=== PATIENT | female | born 1935 | race Caucasian/White ===

== ENCOUNTER 2021-07-15 14:30 | Inpatient (IN) ==
[2021-07-15] MEDS ORDERED: BUTT CREAM (COMPOUND) ONE (18:17)
--- NOTE | 2021-07-15 19:48 | PT/OTEVAL ---
PT/OT OBJECTIVES - HISTORY Prescription: PT Consult Diagnosis: Weakness, Falls, R Lower Lobe Pneumonia Precautions: Fall Risk, Decreased Safety Awareness PMH: Hypothyroidism, Insomnia, Asthma, Vertigo, Hx COVID-19 () Prior Level of Function: Independent Other, comment: Pt reports that prior to hospitalization she was residing alone Other: Pt reports that prior to hospitalization she was living alone in her own home and was able to perform mobility tasks without a device. Pt then later made a comment about living with her daughter. It is unclear what pt's exact PLOF is and will need to obtained from family. Pt did report that she has been progressively getting weaker recently and has had several falls. - COGNITION Mental Status: Alert, Oriented, Name, Place, Decreased Safety Awarenes Communication Status: Verbal Ability to Follow Directions: 1 Step Memory Loss: None, Short term memory loss, snf memory loss - PAIN Generalized Pain Scale: Mild (3-4) Comments: Pt reports 4-5/10 generalized pain to entire body & tension to her neck. - BED MOBILITY Rolling: Moderate Scooting: Moderate, x2 - TRANSFERS Supine to Sit: Moderate, x2 (Increased encouragement required for participation.) Sit to Stand: Moderate, x2 (Posterior lean in standing position) Sit or Stand Pivot: Not Tested Sit or Stand Pivot Comment: Pt declined Safety (requires cues for:): Hand Placement Precaution - BALANCE Static Sitting: Fair Standing: Poor Dynamic Sitting: Poor Standing: Total Assist - NEUROMOTOR/SENSATION Dar. Lower Ext Sensation: WFL Coordination: WFL Proprioception: WFL - HAND DOMINANCE Extremity Function: Hand Dominance: Right - ROM Bilateral LE ROM: WFL Muscle Tone: WFL - STRENGTH Bilateral LE Strength Number: 3 Other comment: 3+/5 to RLE and 3/5 to LLE - GAIT Comments: Pt declined to attempt gait tasks stating she's too fatigued. PT/OT ASSESSMENT - PT Problem List: Decreased Bed Mobility, Decreased Transfers, Decreased Gait, Decreased Balance, Decreased Safety, Decreased LE Strength - PT GOALS Short Term Goals Days: 10 Mobility: Pt will perform bed mobility tasks with mod assist x 1 Transfers: Pt will perform functional transfers with mod assist x 1 Gait: Pt will ambulate 25ft with FWW with mod assist x 1 Balance: Pt will increase static standing balance to fair+/good Program Director Goals Days: 20 Mobility: Pt will perform bed mobility tasks with CGA Transfers: Pt will perform functional transfers with CGA Gait: Pt will ambulate 75ft with FWW and CGA Balance: Pt will increase dynamic standing balance to fair- ROM/Strength: Pt will increase BLE strength to 4 to 4+/5 - PATIENT GOALS Patient/Family Goals: "To be able t get around better" Goals Discussed with Patient/Family: Yes (With pt, family not present at time of PT evaluation) Rehabilitation Potential: Good to meet stated goals Justification for Potential: Facilitate highest level of function & safe discharge planning. Weakness and Barriers: Decreased Participation, Cognitive Barrier If yes, explain: Pt requires increased motivation and encouragement for participation - PLAN Suggested Treatment Plan: Bed Mobility Training, Therapeutic Activity, Gait Training, Neuro Re-education, Therapeutic Ex with HEP, Patient Education, Family Education - FREQUENCY AND DURATION PT: 5x per week x 20 days Expected Continuation of Care at Discharge: Home Health, Skilled Care Facility, Determined on Progress (Pt reports that she will discharge to her daughter's house where she will have a 1st floor set up with "some" steps to enter. Reports that her daughter will be present & can assist her if needed.)
[2021-07-15] MEDS: OMNICEF CAP 300 MG PO SCH (20:35)
[2021-07-15] MEDS: MILK OF MAGNESIA PO PRN (20:35)
[2021-07-15] MEDS: COLACE CAP 100 MG PO SCH (20:35)
[2021-07-15] MEDS: XANAX PO PRN (20:35)
[2021-07-16] MEDS ORDERED: TOPROL XL PO ONE (08:12)
[2021-07-16] MEDS: NORVASC TAB 10 MG PO SCH (08:45)
[2021-07-16] MEDS: OMNICEF CAP 300 MG PO SCH ×2 (08:45→21:40)
[2021-07-16] MEDS: TOPROL XL PO SCH (08:45)
--- NOTE | 2021-07-16 09:50 | PT/OTEVAL ---
PT/OT OBJECTIVES - HISTORY Prescription: OT consult Diagnosis: Weakness Precautions: Fall risk PMH: Not noted in documentation Prior Level of Function: Independent Other: Patient reports she was independent in all BADLs and IADLs prior to getting COVID. - COGNITION Mental Status: Alert, Oriented, Name, Date, Purpose Communication Status: Verbal Ability to Follow Directions: 2 Step - PAIN Generalized Pain Scale: Mild (3-4) Comments: Pt reports 4-5/10 generalized pain to entire body & tension to her neck. - TRANSFERS Supine to Sit: Moderate, x2 Sit to Stand: Moderate, x2 Sit or Stand Pivot: Not Tested (Pt refused to perform pivot, stepping, or walking ) - ADL'S Feeding: Independent Toileting: Dependent (reports she uses bedpan; goal is to use BSC at minimum ) - BALANCE Static Sitting: Fair Standing: Poor Dynamic Sitting: Poor Standing: Total Assist - NEUROMOTOR/SENSATION Dar. Lower Ext Sensation: WFL Coordination: WFL Proprioception: WFL - ROM Bilateral UE ROM: WFL Muscle Tone: WFL - STRENGTH Bilateral LE Strength Number: 3 Other comment: 3+/5 to RLE and 3/5 to LLE Bilateral UE Strength Number: 3 Other comment: 3+/5 PT/OT ASSESSMENT - OT Problem List: Decreased Mobility ADL's, Decreased Dressing, Decreased Bathing, Decreased UE Strength, Other Other, comment: Decreased functional activity tolerance - PT GOALS Short Term Goals Days: 10 Mobility: Pt will perform bed mobility tasks with mod assist x 1 Transfers: Pt will perform functional transfers with mod assist x 1 Gait: Pt will ambulate 25ft with FWW with mod assist x 1 Balance: Pt will increase static standing balance to fair+/good Halfway Goals Days: 20 Mobility: Pt will perform bed mobility tasks with CGA Transfers: Pt will perform functional transfers with CGA Gait: Pt will ambulate 75ft with FWW and CGA Balance: Pt will increase dynamic standing balance to fair- ROM/Strength: Pt will increase BLE strength to 4 to 4+/5 - OT GOALS Short Term Goals Days: 10 Mobility for ADL's: Will perform safe functional transfer w/ RW w/ ModA for BADLs. Dressing: Will perform UB and LB dressing w/ ModA and set up. Bathing: Will perform UB and LB bathing w/ ModA. Other: Will demonstrate F.A.T. to >15 min for light BADLs w/ minimal SOB. Halfway Goals Days: 20 Mobility for ADL's: Will perform safe functional transfer w/ RW w/ TouchA for BADLs. Dressing: Will perform UB and LB dressing w/ TouchA and set up. Bathing: Will perform UB and LB bathing w/ TouchA. Upper Ext. Strength/Use: Will improve BUE strength to 4-/5 for BADLs. Other: Will demonstrate F.A.T. to >20 min for light BADLs w/ minimal SOB. - PATIENT GOALS Patient/Family Goals: Family goal: To be able to use BSC and move in with daughter Goals Discussed with Patient/Family: Yes Rehabilitation Potential: Good Justification for Potential: Higher PLOF, good family support Weakness and Barriers: None - PLAN Suggested Treatment Plan: Therapeutic Activity, Self Care Training, Therapeutic Ex with HEP, Patient Education, Family Education - FREQUENCY AND DURATION OT: 5x/wk x hospital stay Expected Continuation of Care at Discharge: Home, Home Health
[2021-07-16] MEDS: COLACE CAP 100 MG PO SCH (21:40)
[2021-07-16] MEDS: XANAX PO PRN (22:44)
[2021-07-17] MEDS ORDERED: TOPROL XL PO ONE (07:36)
[2021-07-17] MEDS: OMNICEF CAP 300 MG PO SCH ×2 (08:39→21:14)
[2021-07-17] MEDS: NORVASC TAB 10 MG PO SCH (08:39)
[2021-07-17] MEDS: TOPROL XL PO SCH (08:39)
[2021-07-17] MEDS: XANAX PO PRN (09:31)
[2021-07-17] MEDS: ROBITUSSIN DM PO PRN (12:48)
[2021-07-17] MEDS: COLACE CAP 100 MG PO SCH (21:14)
[2021-07-17] MEDS: ZyPREXA TAB 5 MG PO SCH (21:14)
[2021-07-18] MEDS: XANAX PO PRN (01:30)
[2021-07-18] MEDS ORDERED: TOPROL XL PO ONE (07:03)
[2021-07-18] MEDS: NORVASC TAB 10 MG PO SCH (08:31)
[2021-07-18] MEDS: OMNICEF CAP 300 MG PO SCH ×2 (08:31→21:42)
[2021-07-18] MEDS: TOPROL XL PO SCH (08:32)
[2021-07-18] MEDS: ZyPREXA TAB 5 MG PO SCH (21:42)
[2021-07-18] MEDS: COLACE CAP 100 MG PO SCH (21:42)
[2021-07-19] MEDS: ROBITUSSIN DM PO PRN (03:08)
[2021-07-19 05:58] LABS: BASOPHILS % (AUTO) 0.9 % (0.2-1.0); EOSINOPHILS # (AUTO) 0.1 x10^3/uL (0.0-0.2); EOSINOPHILS % (AUTO) 2.9 % (0.9-2.9); HEMATOCRIT 28.1 % (36.0-47.0); HEMOGLOBIN 9.8 g/dL (12.0-16.0); LYMPHOCYTES # (AUTO) 0.7 X10^3/uL (1.3-2.9); LYMPHOCYTES % (AUTO) 14.4 % (21.0-51.0); MEAN CORPUSCULAR HEMOGLOBIN 31.8 pg (27.0-34.0); MEAN CORPUSCULAR HGB CONC 34.9 g/dL (33.0-35.0); MEAN CORPUSCULAR VOLUME 91.1 fL (80.0-100.0); MONOCYTES # (AUTO) 0.3 x10^3/uL (0.3-0.8); MONOCYTES % (AUTO) 6.6 % (0.0-13.0); NEUTROPHILS # (AUTO) 3.7 x10^3/uL (2.2-4.8); NEUTROPHILS % (AUTO) 75.2 % (42.0-75.0); RED BLOOD COUNT 3.09 X10^6/uL (3.5-5.4); RED CELL DISTRIBUTION WIDTH 14.5 % (11.6-16.5); WHITE BLOOD COUNT 4.9 X10^3/uL (3.6-10.0)
[2021-07-19 06:10] LABS: ALANINE AMINOTRANSFERASE 30 Units/L (12-78); ALBUMIN 2.9 g/dL (3.4-5.0); ALKALINE PHOSPHATASE 151 Units/L (46-116); ASPARTATE AMINO TRANSFERASE 27 Units/L (15-37); BLOOD UREA NITROGEN 19 mg/dL (7-18); CALCIUM 8.5 mg/dL (8.5-10.1); CHLORIDE 98 mmol/L (98-107); COR CA(FOR HYPOALB) 9.4 mg/dL (8.5-10.1); COR NA(FOR HYPERGLY) 136 mmol/L (136-145); CREATININE 0.83 mg/dL (0.55-1.02); SODIUM 136 mmol/L (136-145); TOTAL PROTEIN 6.9 g/dL (6.4-8.2); eGFR NON BLACK RACES > 60 (>60)
[2021-07-19] MEDS ORDERED: TOPROL XL PO ONE (07:41)
[2021-07-19] MEDS: NORVASC TAB 10 MG PO SCH (08:29)
[2021-07-19] MEDS: OMNICEF CAP 300 MG PO SCH ×2 (08:29→21:41)
[2021-07-19] MEDS: TOPROL XL PO SCH (08:29)
[2021-07-19] MEDS: XANAX PO PRN (12:00)
[2021-07-19] MEDS ORDERED: KLOR-CON PO PRN (14:36)
[2021-07-19] MEDS ORDERED: POTASSIUM CHL 40 MEQ/NS 0.45% 500 ML IV PRN (14:36)
[2021-07-19] MEDS ORDERED: K-RIDER 10 MEQ/NS 100 ML 10 MEQ/100 ML BAG IV PRN (14:36)
[2021-07-19] MEDS ORDERED: POTASSIUM CHL 60 MEQ/NS 0.45% 500 ML IV PRN (14:36)
[2021-07-19] MEDS ORDERED: MAGNESIUM SULFATE 1 GRAM/100 mL PREMIX 1 G/100 ML BAG IV PRN (14:36)
[2021-07-19] MEDS ORDERED: POTASSIUM CHLORIDE LIQ 20 MEQ UDC PO PRN (14:36)
[2021-07-19] MEDS ORDERED: MICRO K EXTEN CAP 10 MEQ PO PRN (14:36)
[2021-07-19 16:09] VITALS: BMI 21.4
[2021-07-19] MEDS: COLACE CAP 100 MG PO SCH (21:40)
[2021-07-19] MEDS: ZyPREXA TAB 5 MG PO SCH (21:41)
[2021-07-20] MEDS ORDERED: TOPROL XL PO ONE (08:01)
[2021-07-20] MEDS: NORVASC TAB 10 MG PO SCH (09:33)
[2021-07-20] MEDS: OMNICEF CAP 300 MG PO SCH ×2 (09:34→21:52)
[2021-07-20] MEDS: TOPROL XL PO SCH (09:34)
[2021-07-20] MEDS: ROBITUSSIN DM PO PRN (12:52)
[2021-07-20] MEDS ORDERED: TYLENOL 325 MG TAB PO PRN (14:55)
[2021-07-20] MEDS ORDERED: TYLENOL 325 MG TAB PO ONE (14:59)
[2021-07-20] MEDS: COLACE CAP 100 MG PO SCH (21:52)
[2021-07-20] MEDS: ZyPREXA TAB 5 MG PO SCH (21:52)
[2021-07-21] MEDS: XANAX PO PRN ×2 (02:03→20:56)
[2021-07-21 06:33] LABS: BASOPHILS % (AUTO) 1.3 % (0.2-1.0); EOSINOPHILS # (AUTO) 0.2 x10^3/uL (0.0-0.2); HEMATOCRIT 26.7 % (36.0-47.0); HEMOGLOBIN 8.7 g/dL (12.0-16.0); LYMPHOCYTES # (AUTO) 0.5 X10^3/uL (1.3-2.9); MEAN CORPUSCULAR HEMOGLOBIN 30.1 pg (27.0-34.0); MEAN CORPUSCULAR HGB CONC 32.6 g/dL (33.0-35.0); MEAN CORPUSCULAR VOLUME 92.4 fL (80.0-100.0); MEAN PLATELET VOLUME 7.1 fL (7.4-11.0); MONOCYTES # (AUTO) 0.2 x10^3/uL (0.3-0.8); NEUTROPHILS # (AUTO) 2.1 x10^3/uL (2.2-4.8); NEUTROPHILS % (AUTO) 68.7 % (42.0-75.0); RED BLOOD COUNT 2.89 X10^6/uL (3.5-5.4); RED CELL DISTRIBUTION WIDTH 14.7 % (11.6-16.5); WHITE BLOOD COUNT 3.1 X10^3/uL (3.6-10.0)
[2021-07-21 06:57] LABS: ALANINE AMINOTRANSFERASE 28 Units/L (12-78); ALBUMIN 2.6 g/dL (3.4-5.0); ALKALINE PHOSPHATASE 143 Units/L (46-116); ASPARTATE AMINO TRANSFERASE 28 Units/L (15-37); BLOOD UREA NITROGEN 22 mg/dL (7-18); CALCIUM 8.6 mg/dL (8.5-10.1); CARBON DIOXIDE 29.2 mmol/L (21-32); CHLORIDE 101 mmol/L (98-107); COR CA(FOR HYPOALB) 9.7 mg/dL (8.5-10.1); CREATININE 0.82 mg/dL (0.55-1.02); SODIUM 137 mmol/L (136-145); TOTAL PROTEIN 6.6 g/dL (6.4-8.2); eGFR NON BLACK RACES > 60 (>60)
[2021-07-21] MEDS ORDERED: TOPROL XL PO ONE (07:24)
[2021-07-21] MEDS: OMNICEF CAP 300 MG PO SCH ×2 (09:30→20:56)
[2021-07-21] MEDS: TOPROL XL PO SCH (09:30)
[2021-07-21] MEDS: NORVASC TAB 10 MG PO SCH (09:30)
[2021-07-21] MEDS: ROBITUSSIN DM PO PRN (13:02)
[2021-07-21] MEDS ORDERED: BUTT CREAM (COMPOUND) ONE (14:21)
[2021-07-21] MEDS ORDERED: BUTT CREAM (COMPOUND) TOP PRN (16:12)
[2021-07-21 19:01] LABS: BILIRUBIN,URINE NEGATIVE (NEGATIVE); BLOOD/HEMOGLOBIN,URINE NEGATIVE (NEGATIVE); GLUCOSE, URINE NEGATIVE (NEGATIVE); KETONES,URINE NEGATIVE (NEGATIVE); LEUKOCYTE ESTERASE ,URINE NEGATIVE (NEGATIVE); NITRITES,URINE NEGATIVE (NEGATIVE); PROTEIN,URINE 1+ (NEGATIVE); UROBILINOGEN,URINE NORMAL (NORMAL)
[2021-07-21 19:11] LABS: APPEARANCE,URINE CLEAR (CLEAR); COLOR,URINE YELLOW (YELLOW); RBC,URINE NONE SEEN /HPF (0-3)
[2021-07-21 19:12] LABS: BACTERIA,URINE NEGATIVE /HPF (NEGATIVE); SQUAMOUS EPITHELIAL CELL,UR RARE /HPF (NEGATIVE)
[2021-07-21] MEDS: COLACE CAP 100 MG PO SCH (20:56)
[2021-07-21] MEDS: ZyPREXA TAB 5 MG PO SCH (20:56)
[2021-07-22] MEDS ORDERED: TOPROL XL PO ONE (07:29)
[2021-07-22] MEDS: TOPROL XL PO SCH (08:39)
[2021-07-22] MEDS: OMNICEF CAP 300 MG PO SCH ×2 (08:39→20:42)
[2021-07-22] MEDS: NORVASC TAB 10 MG PO SCH (08:39)
[2021-07-22] MEDS: COLACE CAP 100 MG PO SCH (20:42)
[2021-07-22] MEDS: XANAX PO PRN (20:42)
[2021-07-22] MEDS: ZyPREXA TAB 5 MG PO SCH (20:42)
--- NOTE | 2021-07-22 23:16 | PCM.PROG ---
Progress Note - Progress Note for Day of Date of Exam: 07/20/21 - Subjective Subjective: Patient is an 85 year old white female who was admitted for swing bed from [facility] as per HPI. Patient working well with PT. No new issues or concerns. - Past Medical Family Social History Past Med/Fam/Surg Hx: No changes since H&P Allergies: Allergies No Known Drug Allergies Allergy (Verified 07/15/21 19:16) - Review of Systems ROS: No change since H&P - Vital Signs and I&O's Vital Signs: Temperature 97.9 F Pulse Rate [Radial] 89 Pulse Rate 92 Respiratory Rate 22 Blood Pressure [Left Arm] 127/61 O2 Sat by Pulse Oximetry 93 Intake and Output: Intake & Output 07/19/21 07/20/21 07/21/21 07/22/21 23:59 23:59 23:59 23:59 Intake Total 660 / 660 1342 / 1342 920 / 920 840 / 840 Output Total 880 / 880 200 / 200 Balance 660 / 660 1342 / 1342 40 / 40 640 / 640 - Physical Exam Oriented: Not Oriented, Other (Patient is alert with clear speech. Patient does get confused easily and frequently. No unilateral weakness.) Eyes: Normal Ear: Normal, Left Throat: Normal Respiratory: Generalized, Rhonchi Cardiovascular: Murmur : Normal Auscultation: Bowel Sounds: Normal Palpation: Normal Tenderness: Normal Skin: Normal Musculoskeletal: Back:Thoracic, Back:Lumbar, Tender (generalized global weakness), Instability Psychiatric: Normal Mood Description: Calm Affect: Normal Speech Pattern: Clear, Appropriate - Laboratory and Diagnostics Result Diagrams: 07/21/21 05:31 07/21/21 05:31 Labs: Laboratory WBC 3.1 X10^3/uL (3.6-10.0) L 07/21/21 05:31 RBC 2.89 X10^6/uL (3.5-5.4) L 07/21/21 05:31 Hgb 8.7 g/dL (12.0-16.0) L 07/21/21 05:31 Hct 26.7 % (36.0-47.0) L 07/21/21 05:31 MCV 92.4 fL (80.0-100.0) 07/21/21 05:31 MCH 30.1 pg (27.0-34.0) 03/30/22 05:31 MCHC 32.6 g/dL (33.0-35.0) L 07/21/21 05:31 RDW 14.7 % (11.6-16.5) 07/21/21 05:31 Plt Count 348 X10^3/uL (150.0-450.0) 07/21/21 05:31 MPV 7.1 fL (7.4-11.0) L 07/21/21 05:31 Neut % (Auto) 68.7 % (42.0-75.0) 07/21/21 05:31 Lymph % (Auto) 17.0 % (21.0-51.0) L 07/21/21 05:31 [place] % (Auto) 8.0 % (0.0-13.0) 07/21/21 05:31 Eos % (Auto) 5.0 % (0.9-2.9) H 07/21/21 05:31 Baso % (Auto) 1.3 % (0.2-1.0) H 07/21/21 05:31 Neut # (Auto) 2.1 x10^3/uL (2.2-4.8) L 07/21/21 05:31 Lymph # (Auto) 0.5 X10^3/uL (1.3-2.9) L 07/21/21 05:31 [place] # (Auto) 0.2 x10^3/uL (0.3-0.8) L 07/21/21 05:31 Eos # (Auto) 0.2 x10^3/uL (0.0-0.2) 07/21/21 05:31 Baso # (Auto) 0.0 X10^3/uL (0.0-0.1) 07/21/21 05:31 Absolute Nucleated RBC 0.0 /100WBC 07/21/21 05:31 Sodium 137 mmol/L (136-145) 07/21/21 05:31 Corrected Sodium TNP 07/21/21 05:31 Potassium 3.3 mmol/L (3.5-5.1) L 07/21/21 05:31 Chloride 101 mmol/L (98-107) 07/21/21 05:31 Carbon Dioxide 29.2 mmol/L (21-32) 07/21/21 05:31 BUN 22 mg/dL (7-18) H 07/21/21 05:31 Creatinine 0.82 mg/dL (0.55-1.02) 07/21/21 05:31 Est GFR (MDRD) Af Amer > 60 (>60) 07/21/21 05:31 Est GFR (MDRD) Non-Af > 60 (>60) 07/21/21 05:31 Glucose 108 mg/dL (65-99) H 07/21/21 05:31 POC Glucose (mg/dL) 112 mg/dL (65-99) H 07/21/21 20:29 Calcium 8.6 mg/dL (8.5-10.1) 07/21/21 05:31 Corrected Calcium 9.7 mg/dL (8.5-10.1) 07/21/21 05:31 Magnesium 2.1 mg/dL (1.7-2.9) 07/19/21 14:52 Total Bilirubin 0.30 mg/dL (0.2-1.0) 07/21/21 05:31 AST 28 Units/L (15-37) 07/21/21 05:31 ALT 28 Units/L (12-78) 07/21/21 05:31 Alkaline Phosphatase 143 Units/L (46-116) H 07/21/21 05:31 Total Protein 6.6 g/dL (6.4-8.2) 07/21/21 05:31 Albumin 2.6 g/dL (3.4-5.0) L 07/21/21 05:31 Globulin 4.0 g/dL (2.5-4.5) 07/21/21 05:31 Albumin/Globulin Ratio 0.7 Ratio (1.1-2.1) L 07/21/21 05:31 Specimen Type Catherized urine 07/21/21 18:29 Urine Color Yellow (YELLOW) 07/21/21 18: Urine Appearance Clear (CLEAR) 07/21/21 18: Urine pH 7.0 (5.0 - 8.0) 07/21/21 18:29 Ur Specific [place] 1.015 (1.000-1.030) 07/21/21 18:29 Urine Protein 1+ (NEGATIVE) 07/21/21 18:29 Urine Glucose (UA) Negative (NEGATIVE) 07/21/21 18:29 Urine Ketones Negative (NEGATIVE) 07/21/21 18:29 Urine Blood Negative (NEGATIVE) 07/21/21 18:29 Urine Nitrite Negative (NEGATIVE) 07/21/21 18:29 Urine Bilirubin Negative (NEGATIVE) 07/21/21 18:29 Urine Urobilinogen Normal (NORMAL) 07/21/21 18:29 Ur Leukocyte Esterase Negative (NEGATIVE) 07/21/21 18:29 Urine RBC None seen /HPF (0-3) 07/21/21 18:29 Urine WBC None seen /HPF (0-5) 07/21/21 18:29 Ur Squamous Epith Cells Rare /HPF (NEGATIVE) 07/21/21 18:29 Urine Bacteria Negative /HPF (NEGATIVE) 07/21/21 18:29 Ur Culture Indicated? No/not indicated 07/21/21 18:29 - Plan (1) Pneumonia Status: Acute Plan: PO cefdinir. Physical therapy. Labs as ordered. Continue home meds (2) Generalized weakness Status: Acute (3) Diabetes mellitus Status: Chronic Plan: Home meds (4) Hypertension Status: Chronic Plan: Home meds
[2021-07-22] MEDS ORDERED: MILK OF MAGNESIA PO SCH (23:45)
[2021-07-23] MEDS ORDERED: TOPROL XL PO ONE (07:12)
[2021-07-23 08:02] LABS: EOSINOPHILS # (AUTO) 0.2 x10^3/uL (0.0-0.2); EOSINOPHILS % (AUTO) 5.3 % (0.9-2.9); HEMATOCRIT 26.1 % (36.0-47.0); HEMOGLOBIN 9.1 g/dL (12.0-16.0); LYMPHOCYTES # (AUTO) 0.7 X10^3/uL (1.3-2.9); LYMPHOCYTES % (AUTO) 19.7 % (21.0-51.0); MEAN CORPUSCULAR HEMOGLOBIN 31.7 pg (27.0-34.0); MEAN CORPUSCULAR HGB CONC 34.9 g/dL (33.0-35.0); MEAN CORPUSCULAR VOLUME 90.7 fL (80.0-100.0); MEAN PLATELET VOLUME 6.8 fL (7.4-11.0); MONOCYTES # (AUTO) 0.3 x10^3/uL (0.3-0.8); MONOCYTES % (AUTO) 9.1 % (0.0-13.0); NEUTROPHILS # (AUTO) 2.2 x10^3/uL (2.2-4.8); NEUTROPHILS % (AUTO) 64.9 % (42.0-75.0); RED BLOOD COUNT 2.88 X10^6/uL (3.5-5.4); RED CELL DISTRIBUTION WIDTH 14.5 % (11.6-16.5); WHITE BLOOD COUNT 3.4 X10^3/uL (3.6-10.0)
[2021-07-23 08:11] LABS: ALANINE AMINOTRANSFERASE 28 Units/L (12-78); ALBUMIN 2.7 g/dL (3.4-5.0); ALKALINE PHOSPHATASE 149 Units/L (46-116); ASPARTATE AMINO TRANSFERASE 26 Units/L (15-37); BLOOD UREA NITROGEN 13 mg/dL (7-18); CALCIUM 8.7 mg/dL (8.5-10.1); CARBON DIOXIDE 29.8 mmol/L (21-32); CHLORIDE 102 mmol/L (98-107); COR CA(FOR HYPOALB) 9.7 mg/dL (8.5-10.1); COR NA(FOR HYPERGLY) 141 mmol/L (136-145); CREATININE 0.79 mg/dL (0.55-1.02); MAGNESIUM 1.7 mg/dL (1.7-2.9); SODIUM 141 mmol/L (136-145); TOTAL PROTEIN 6.8 g/dL (6.4-8.2); eGFR NON BLACK RACES > 60 (>60)
[2021-07-23] MEDS: SYNTHROID 150 mcg TAB PO SCH (08:39)
[2021-07-23] MEDS: OMNICEF CAP 300 MG PO SCH ×2 (08:39→22:52)
[2021-07-23] MEDS: XANAX PO SCH ×2 (08:39→22:52)
[2021-07-23] MEDS ORDERED: OMNICEF CAP 300 MG PO SCH (09:00)
[2021-07-23] MEDS ORDERED: TOPROL XL PO SCH (09:00)
[2021-07-23] MEDS ORDERED: COLACE CAP 100 MG PO SCH (09:00)
[2021-07-23] MEDS ORDERED: PATIENT'S HOME MEDICATION (Alprazolam [Xanax] 0.5 mg Tablet) PO SCH (09:00)
[2021-07-23] MEDS ORDERED: NORVASC TAB 10 MG PO SCH (09:00)
[2021-07-23] MEDS: TOPROL XL PO SCH (12:48)
[2021-07-23] MEDS: NORVASC TAB 10 MG PO SCH (12:48)
[2021-07-23] MEDS: ROBITUSSIN DM PO PRN (12:56)
[2021-07-23] MEDS: K-DUR TAB 20 MEQ PO PRN (18:37)
[2021-07-23] MEDS: ZyPREXA TAB 5 MG PO SCH (22:52)
[2021-07-23] MEDS: COLACE CAP 100 MG PO SCH (22:52)
[2021-07-24] MEDS ORDERED: TOPROL XL PO ONE (07:52)
[2021-07-24 08:47] LABS: MAGNESIUM 1.8 mg/dL (1.7-2.9)
[2021-07-24] MEDS: K-DUR TAB 20 MEQ PO PRN (09:02)
[2021-07-24] MEDS: OMNICEF CAP 300 MG PO SCH ×2 (09:03→22:00)
[2021-07-24] MEDS: SYNTHROID 150 mcg TAB PO SCH (09:03)
[2021-07-24] MEDS: XANAX PO SCH ×2 (09:03→22:00)
--- NOTE | 2021-07-24 10:19 | PCM.PROG ---
Progress Note Progress Note for Day of Date of Exam: 07/24/21 Subjective Subjective: Patient is an 85 year old female who was admitted for swing bed from [facility]. She is doing well with no complaints. Patient working well with PT. Patient lost her IV access and unable to obtain another one. She was getting IV magnesium. Labs reviewed - Mg 1.8 K:3.6 Plan: continue current treatment, PT/OT as tolerated. Fall precautions. Continue Cefdinir for pneumonia. Will add PO Mag. Monitor labs as needed. Past Medical Family Social History Past Med/Fam/Surg Hx: No changes since H&P Allergies: Allergies No Known Drug Allergies Allergy (Verified 07/15/21 19:16) Review of Systems ROS: No change since H&P Vital Signs and I&O's Vital Signs: Temperature 99.1 F Pulse Rate [Radial] 71 Pulse Rate 92 Respiratory Rate 20 Blood Pressure [Left Arm] 110/58 O2 Sat by Pulse Oximetry 98 Intake and Output: Intake & Output 07/21/21 07/22/21 07/23/21 07/24/21 23:59 23:59 23:59 23:59 Intake Total 920 / 920 1140 / 1140 930 / 930 150 / 150 Output Total 880 / 880 200 / 200 Balance 40 / 40 940 / 940 930 / 930 150 / 150 Physical Exam Oriented: Not Oriented Eyes: Normal Ear: Normal Throat: Normal Respiratory: Generalized Cardiovascular: Normal and Murmur Auscultation: Bowel Sounds: Normal Tenderness: Normal Skin: Decreased Turgur Musculoskeletal: Back:Thoracic, Back:Lumbar, Tender (generalized global weakness) and Instability Psychiatric: Normal Mood Description: Calm Affect: Normal Speech Pattern: Clear and Appropriate Laboratory and Diagnostics Result Diagrams: 07/23/21 07:43 07/24/21 08:34 Labs: Laboratory WBC 3.4 X10^3/uL (3.6-10.0) L 07/23/21 07:43 RBC 2.88 X10^6/uL (3.5-5.4) L 07/23/21 07:43 Hgb 9.1 g/dL (12.0-16.0) L 07/23/21 07:43 Hct 26.1 % (36.0-47.0) L 07/23/21 07:43 MCV 90.7 fL (80.0-100.0) 07/23/21 07:43 MCH 31.7 pg (27.0-34.0) 07/23/21 07:43 MCHC 34.9 g/dL (33.0-35.0) 07/23/21 07:43 RDW 14.5 % (11.6-16.5) 07/23/21 07:43 Plt Count 352 X10^3/uL (150.0-450.0) 07/23/21 07:43 MPV 6.8 fL (7.4-11.0) L 07/23/21 07:43 Neut % (Auto) 64.9 % (42.0-75.0) 07/23/21 07:43 Lymph % (Auto) 19.7 % (21.0-51.0) L 07/23/21 07:43 [place] % (Auto) 9.1 % (0.0-13.0) 07/23/21 07:43 Eos % (Auto) 5.3 % (0.9-2.9) H 07/23/21 07:43 Baso % (Auto) 1.0 % (0.2-1.0) 07/23/21 07:43 Neut # (Auto) 2.2 x10^3/uL (2.2-4.8) 07/23/21 07:43 Lymph # (Auto) 0.7 X10^3/uL (1.3-2.9) L 07/23/21 07:43 [place] # (Auto) 0.3 x10^3/uL (0.3-0.8) 07/23/21 07:43 Eos # (Auto) 0.2 x10^3/uL (0.0-0.2) 07/23/21 07:43 Baso # (Auto) 0.0 X10^3/uL (0.0-0.1) 07/23/21 07:43 Absolute Nucleated RBC 0.0 /100WBC 07/23/21 07:43 Sodium 141 mmol/L (136-145) 07/23/21 07:43 Corrected Sodium 141 mmol/L (136-145) 07/23/21 07:43 Potassium 3.6 mmol/L (3.5-5.1) 07/24/21 08:34 Chloride 102 mmol/L (98-107) 07/23/21 07:43 Carbon Dioxide 29.8 mmol/L (21-32) 07/23/21 07:43 BUN 13 mg/dL (7-18) 07/23/21 07:43 Creatinine 0.79 mg/dL (0.55-1.02) 07/23/21 07:43 Est GFR (MDRD) Af Amer > 60 (>60) 07/23/21 07:43 Est GFR (MDRD) Non-Af > 60 (>60) 07/23/21 07:43 Glucose 115 mg/dL (65-99) H 07/23/21 07:43 POC Glucose (mg/dL) 112 mg/dL (65-99) H 07/21/21 20:29 Calcium 8.7 mg/dL (8.5-10.1) 07/23/21 07:43 Corrected Calcium 9.7 mg/dL (8.5-10.1) 07/23/21 07:43 Magnesium 1.8 mg/dL (1.7-2.9) 07/24/21 08:34 Total Bilirubin 0.20 mg/dL (0.2-1.0) 07/23/21 07:43 AST 26 Units/L (15-37) 07/23/21 07:43 ALT 28 Units/L (12-78) 07/23/21 07:43 Alkaline Phosphatase 149 Units/L (46-116) H 07/23/21 07:43 Total Protein 6.8 g/dL (6.4-8.2) 07/23/21 07:43 Albumin 2.7 g/dL (3.4-5.0) L 07/23/21 07:43 Globulin 4.1 g/dL (2.5-4.5) 07/23/21 07:43 Albumin/Globulin Ratio 0.7 Ratio (1.1-2.1) L 07/23/21 07:43 Specimen Type Catherized urine 07/21/21 18:29 Urine Color Yellow (YELLOW) 07/21/21 18:29 Urine Appearance Clear (CLEAR) 07/21/21 18:29 Urine pH 7.0 (5.0 - 8.0) 07/21/21 18:29 Ur Specific [place] 1.015 (1.000-1.030) 07/21/21 18:29 Urine Protein 1+ (NEGATIVE) 07/21/21 18:29 Urine Glucose (UA) Negative (NEGATIVE) 07/21/21 18:29 Urine Ketones Negative (NEGATIVE) 07/21/21 18:29 Urine Blood Negative (NEGATIVE) 07/21/21 18:29 Urine Nitrite Negative (NEGATIVE) 07/21/21 18:29 Urine Bilirubin Negative (NEGATIVE) 07/21/21 18:29 Urine Urobilinogen Normal (NORMAL) 07/21/21 18:29 Ur Leukocyte Esterase Negative (NEGATIVE) 07/21/21 18:29 Urine RBC None seen /HPF (0-3) 07/21/21 18:29 Urine WBC None seen /HPF (0-5) 07/21/21 18:29 Ur Squamous Epith Cells Rare /HPF (NEGATIVE) 07/21/21 18:29 Urine Bacteria Negative /HPF (NEGATIVE) 07/21/21 18:29 Ur Culture Indicated? No/not indicated 07/21/21 18:29 Plan (1) Pneumonia: Status: Acute Qualifiers: Aspiration pneumonia type: unspecified Laterality: unspecified later ality Lung location: unspecified part of lung Pneumonia type: aspiration pneumonia Qualified Code(s): J69.0 - Pneumonitis due to inhalation of food and vomit Plan: PO cefdinir Physical therapy Continue home meds (2) Generalized weakness: Status: Acute (3) Diabetes mellitus: Status: Chronic Qualifiers: Diabetes mellitus complication status: with other specified complication Diabetes mellitus exterminator insulin use: unspecified exterminator insulin use status Diabetes mellitus type: type 2 Qualified Code(s): E11.69 - Type 2 d iabetes mellitus with other specified complication Plan: Home meds (4) Hypertension: Status: Chronic Qualifiers: Hypertension type: primary hypertension Qualified Code(s): I10 - Essential (primary) hypertension Plan: Home meds
[2021-07-24] MEDS: NORVASC TAB 10 MG PO SCH (12:18)
[2021-07-24] MEDS: TOPROL XL PO SCH (12:18)
[2021-07-24] MEDS: MAG-OX TAB PO SCH (12:19)
[2021-07-24] MEDS: ZyPREXA TAB 5 MG PO SCH (22:00)
[2021-07-24] MEDS: COLACE CAP 100 MG PO SCH (22:00)
[2021-07-25 05:26] LABS: MAGNESIUM 1.9 mg/dL (1.7-2.9)
[2021-07-25] MEDS: MAG-OX TAB PO SCH (05:59)
[2021-07-25] MEDS ORDERED: TOPROL XL PO ONE (10:02)
[2021-07-25] MEDS: NORVASC TAB 10 MG PO SCH (10:07)
[2021-07-25] MEDS: OMNICEF CAP 300 MG PO SCH (10:08)
[2021-07-25] MEDS: XANAX PO SCH ×2 (10:08→20:57)
[2021-07-25] MEDS: TOPROL XL PO SCH (10:08)
[2021-07-25] MEDS: SYNTHROID 150 mcg TAB PO SCH (10:09)
[2021-07-25] MEDS: ZyPREXA TAB 5 MG PO SCH (20:57)
[2021-07-25] MEDS: COLACE CAP 100 MG PO SCH (20:57)
[2021-07-26 05:47] LABS: EOSINOPHILS # (AUTO) 0.2 x10^3/uL (0.0-0.2); EOSINOPHILS % (AUTO) 5.8 % (0.9-2.9); HEMATOCRIT 28.2 % (36.0-47.0); HEMOGLOBIN 9.6 g/dL (12.0-16.0); LYMPHOCYTES # (AUTO) 0.8 X10^3/uL (1.3-2.9); LYMPHOCYTES % (AUTO) 24.1 % (21.0-51.0); MEAN CORPUSCULAR HEMOGLOBIN 31.3 pg (27.0-34.0); MEAN CORPUSCULAR HGB CONC 34.2 g/dL (33.0-35.0); MEAN CORPUSCULAR VOLUME 91.3 fL (80.0-100.0); MONOCYTES # (AUTO) 0.2 x10^3/uL (0.3-0.8); MONOCYTES % (AUTO) 6.4 % (0.0-13.0); NEUTROPHILS # (AUTO) 2.1 x10^3/uL (2.2-4.8); NEUTROPHILS % (AUTO) 62.7 % (42.0-75.0); RED BLOOD COUNT 3.09 X10^6/uL (3.5-5.4); RED CELL DISTRIBUTION WIDTH 14.4 % (11.6-16.5); WHITE BLOOD COUNT 3.4 X10^3/uL (3.6-10.0)
[2021-07-26] MEDS: MAG-OX TAB PO SCH (06:00)
[2021-07-26 06:04] LABS: ALANINE AMINOTRANSFERASE 23 Units/L (12-78); ALBUMIN 2.6 g/dL (3.4-5.0); ALKALINE PHOSPHATASE 150 Units/L (46-116); ASPARTATE AMINO TRANSFERASE 19 Units/L (15-37); BLOOD UREA NITROGEN 11 mg/dL (7-18); CALCIUM 8.5 mg/dL (8.5-10.1); CARBON DIOXIDE 27.2 mmol/L (21-32); CHLORIDE 106 mmol/L (98-107); COR CA(FOR HYPOALB) 9.6 mg/dL (8.5-10.1); COR NA(FOR HYPERGLY) 142 mmol/L (136-145); CREATININE 0.74 mg/dL (0.55-1.02); MAGNESIUM 1.9 mg/dL (1.7-2.9); SODIUM 141 mmol/L (136-145); TOTAL PROTEIN 6.6 g/dL (6.4-8.2); eGFR NON BLACK RACES > 60 (>60)
[2021-07-26] MEDS ORDERED: TOPROL XL PO ONE (08:18)
[2021-07-26] MEDS: SYNTHROID 150 mcg TAB PO SCH (09:00)
[2021-07-26] MEDS: XANAX PO SCH ×2 (09:00→20:28)
[2021-07-26] MEDS: TOPROL XL PO SCH (09:00)
[2021-07-26] MEDS: NORVASC TAB 10 MG PO SCH (09:00)
[2021-07-26] MEDS: K-DUR TAB 20 MEQ PO PRN (10:18)
--- NOTE | 2021-07-26 17:52 | PCM.PROG ---
Progress Note - Progress Note for Day of Date of Exam: 07/26/21 - Subjective Subjective: The patient is a swing-bed patient of Dr. Nath. The patient is an 85-year-old white female who was admitted with generalized weakness. She is currently receiving some physical therapy and very gentle hydration at this time. She had some hypokalemia. Her potassium was 3.4 today and we do have her on some potassium replacement. She previously had a lower magnesium level so we ordered a repeat magnesium level as well. Pt is on po cefinir for pneumonia. She denies chest pain or sob but had increase central rhonchi on exam so we will repeat CXR today. She has been afebrile. She was not on nasal cannula this morning but she has been on nasal cannula at 2 liters. - Past Medical Family Social History Past Med/Fam/Surg Hx: No changes since H&P Allergies: Allergies No Known Drug Allergies Allergy (Verified 07/15/21 19:16) - Review of Systems ROS: No change since H&P - Vital Signs and I&O's Vital Signs: Temperature 98.3 F Pulse Rate [Radial] 73 Pulse Rate 92 Respiratory Rate 18 Blood Pressure [Left Arm] 127/60 O2 Sat by Pulse Oximetry 96 Intake and Output: Intake & Output 07/24/21 07/25/21 07/26/21 07/27/21 11:59 11:59 11:59 11:59 Intake Total 930 / 930 1080 / 1080 815 / 815 360 / 360 Balance 930 / 930 1080 / 1080 815 / 815 360 / 360 - Physical Exam Oriented: Not Oriented Eyes: Normal Ear: Normal Throat: Normal Respiratory: Generalized Cardiovascular: Murmur, Normal : Normal Auscultation: Bowel Sounds: Normal Tenderness: Normal Skin: Decreased Turgur Musculoskeletal: Back:Thoracic, Back:Lumbar, Tender (generalized global weakness), Instability Psychiatric: Normal Mood Description: Calm Affect: Normal Speech Pattern: Clear, Appropriate - Laboratory and Diagnostics Result Diagrams: 07/26/21 05:30 07/26/21 05:30 Labs: Laboratory WBC 3.4 X10^3/uL (3.6-10.0) L 07/26/21 05:30 RBC 3.09 X10^6/uL (3.5-5.4) L 07/26/21 05:30 Hgb 9.6 g/dL (12.0-16.0) L 07/26/21 05:30 Hct 28.2 % (36.0-47.0) L 07/26/21 05:30 MCV 91.3 fL (80.0-100.0) 07/26/21 05:30 MCH 31.3 pg (27.0-34.0) 07/26/21 05:30 MCHC 34.2 g/dL (33.0-35.0) 07/26/21 05:30 RDW 14.4 % (11.6-16.5) 07/26/21 05:30 Plt Count 354 X10^3/uL (150.0-450.0) 07/26/21 05:30 MPV 7.0 fL (7.4-11.0) L 07/26/21 05:30 Neut % (Auto) 62.7 % (42.0-75.0) 07/26/21 05:30 Lymph % (Auto) 24.1 % (21.0-51.0) 07/26/21 05:30 [place] % (Auto) 6.4 % (0.0-13.0) 07/26/21 05:30 Eos % (Auto) 5.8 % (0.9-2.9) H 07/26/21 05:30 Baso % (Auto) 1.0 % (0.2-1.0) 07/26/21 05:30 Neut # (Auto) 2.1 x10^3/uL (2.2-4.8) L 07/26/21 05:30 Lymph # (Auto) 0.8 X10^3/uL (1.3-2.9) L 07/26/21 05:30 [place] # (Auto) 0.2 x10^3/uL (0.3-0.8) L 07/26/21 05:30 Eos # (Auto) 0.2 x10^3/uL (0.0-0.2) 07/26/21 05:30 Baso # (Auto) 0.0 X10^3/uL (0.0-0.1) 07/26/21 05:30 Absolute Nucleated RBC 0.0 /100WBC 07/26/21 05:30 Sodium 141 mmol/L (136-145) 07/26/21 05:30 Corrected Sodium 142 mmol/L (136-145) 07/26/21 05:30 Potassium 3.4 mmol/L (3.5-5.1) L 07/26/21 05:30 Chloride 106 mmol/L (98-107) 07/26/21 05:30 Carbon Dioxide 27.2 mmol/L (21-32) 07/26/21 05:30 BUN 11 mg/dL (7-18) 07/26/21 05:30 Creatinine 0.74 mg/dL (0.55-1.02) 07/26/21 05:30 Est GFR (MDRD) Af Amer > 60 (>60) 07/26/21 05:30 Est GFR (MDRD) Non-Af > 60 (>60) 07/26/21 05:30 Glucose 124 mg/dL (65-99) H 07/26/21 05:30 POC Glucose (mg/dL) 112 mg/dL (65-99) H 07/21/21 20:29 Calcium 8.5 mg/dL (8.5-10.1) 07/26/21 05:30 Corrected Calcium 9.6 mg/dL (8.5-10.1) 07/26/21 05:30 Magnesium 1.9 mg/dL (1.7-2.9) 07/26/21 05:30 Total Bilirubin 0.20 mg/dL (0.2-1.0) 07/26/21 05:30 AST 19 Units/L (15-37) 07/26/21 05:30 ALT 23 Units/L (12-78) 07/26/21 05:30 Alkaline Phosphatase 150 Units/L (46-116) H 07/26/21 05:30 Total Protein 6.6 g/dL (6.4-8.2) 07/26/21 05:30 Albumin 2.6 g/dL (3.4-5.0) L 07/26/21 05:30 Globulin 4.0 g/dL (2.5-4.5) 07/26/21 05:30 Albumin/Globulin Ratio 0.7 Ratio (1.1-2.1) L 07/26/21 05:30 Specimen Type Catherized urine 07/21/21 18:29 Urine Color Yellow (YELLOW) 07/21/21 18:29 Urine Appearance Clear (CLEAR) 07/21/21 18: Urine pH 7.0 (5.0 - 8.0) 07/21/21 18: Ur Specific [place] 1.015 (1.000-1.030) 07/21/21 18:29 Urine Protein 1+ (NEGATIVE) 07/21/21 18: Urine Glucose (UA) Negative (NEGATIVE) 07/21/21 18: Urine Ketones Negative (NEGATIVE) 07/21/21 18: Urine Blood Negative (NEGATIVE) 07/21/21 18: Urine Nitrite Negative (NEGATIVE) 07/21/21 18: Urine Bilirubin Negative (NEGATIVE) 07/21/21 18: Urine Urobilinogen Normal (NORMAL) 07/21/21 18:29 Ur Leukocyte Esterase Negative (NEGATIVE) 07/21/21 18:29 Urine RBC None seen /HPF (0-3) 07/21/21 18:29 Urine WBC None seen /HPF (0-5) 07/21/21 18:29 Ur Squamous Epith Cells Rare /HPF (NEGATIVE) 07/21/21 18:29 Urine Bacteria Negative /HPF (NEGATIVE) 07/21/21 18:29 Ur Culture Indicated? No/not indicated 07/21/21 18:29
--- NOTE | 2021-07-26 20:16 | RAD ---
HISTORYHX PNEUMONIA, CHEST CONGESTION Relevant Clinical InformationSTUDYCHEST, 1 VIEWCOMPARISONNone.FINDINGSThe trachea is midline. The cardiac silhouette is enlarged without overt signs of failure. Chronic emphysematous and interstitial lung changes. Patchy bilateral airspace disease. No significant pleural effusion or pneumothorax. 10 mm right upper lobe pulmonary nodule.The bony thorax is unremarkable.IMPRESSIONOne. Patchy bilateral airspace disease which may represent multifocal pneumonia. Recommend clinical/laboratory correlation and following to resolution.Two. 10 mm right upper lobe pulmonary nodule. Recommend dedicated CT of the chest with contrast on outpatient basis for further characterization.Electronically signed by: SYLVIA HERRERA (Jul 26, 2021 20:16:20)
[2021-07-26] MEDS: COLACE CAP 100 MG PO SCH (20:28)
[2021-07-26] MEDS: ZyPREXA TAB 5 MG PO SCH (20:28)
[2021-07-26] MEDS: MILK OF MAGNESIA PO PRN (20:29)
[2021-07-27] MEDS ORDERED: VISTARIL PO PRN (01:44)
[2021-07-27] MEDS: ROBITUSSIN DM PO PRN (02:53)
[2021-07-27] MEDS: MAG-OX TAB PO SCH (05:59)
[2021-07-27] MEDS ORDERED: TOPROL XL PO ONE (08:15)
[2021-07-27] MEDS: NORVASC TAB 10 MG PO SCH (08:16)
[2021-07-27] MEDS: SYNTHROID 150 mcg TAB PO SCH (08:16)
[2021-07-27] MEDS: XANAX PO SCH ×2 (08:16→21:35)
[2021-07-27] MEDS: TOPROL XL PO SCH (08:16)
[2021-07-27] MEDS: ROBITUSSIN DM PO SCH ×4 (09:35→21:35)
[2021-07-27] MEDS: COLACE CAP 100 MG PO SCH (21:35)
[2021-07-28 04:36] LABS: BASOPHILS % (AUTO) 0.4 % (0.2-1.0); EOSINOPHILS # (AUTO) 0.2 x10^3/uL (0.0-0.2); EOSINOPHILS % (AUTO) 3.7 % (0.9-2.9); HEMATOCRIT 24.1 % (36.0-47.0); HEMOGLOBIN 8.3 g/dL (12.0-16.0); LYMPHOCYTES # (AUTO) 0.9 X10^3/uL (1.3-2.9); LYMPHOCYTES % (AUTO) 16.2 % (21.0-51.0); MEAN CORPUSCULAR HEMOGLOBIN 31.3 pg (27.0-34.0); MEAN CORPUSCULAR HGB CONC 34.3 g/dL (33.0-35.0); MEAN CORPUSCULAR VOLUME 91.1 fL (80.0-100.0); MEAN PLATELET VOLUME 7.2 fL (7.4-11.0); MONOCYTES # (AUTO) 0.3 x10^3/uL (0.3-0.8); MONOCYTES % (AUTO) 5.1 % (0.0-13.0); NEUTROPHILS # (AUTO) 4.2 x10^3/uL (2.2-4.8); NEUTROPHILS % (AUTO) 74.6 % (42.0-75.0); RED BLOOD COUNT 2.65 X10^6/uL (3.5-5.4); RED CELL DISTRIBUTION WIDTH 14.6 % (11.6-16.5); WHITE BLOOD COUNT 5.7 X10^3/uL (3.6-10.0)
[2021-07-28 04:53] LABS: ALANINE AMINOTRANSFERASE 19 Units/L (12-78); ALBUMIN 2.3 g/dL (3.4-5.0); ALKALINE PHOSPHATASE 127 Units/L (46-116); ASPARTATE AMINO TRANSFERASE 17 Units/L (15-37); BLOOD UREA NITROGEN 25 mg/dL (7-18); CALCIUM 8.3 mg/dL (8.5-10.1); CARBON DIOXIDE 30.8 mmol/L (21-32); CHLORIDE 104 mmol/L (98-107); COR CA(FOR HYPOALB) 9.7 mg/dL (8.5-10.1); CREATININE 0.81 mg/dL (0.55-1.02); SODIUM 138 mmol/L (136-145); TOTAL PROTEIN 5.9 g/dL (6.4-8.2); eGFR NON BLACK RACES > 60 (>60)
[2021-07-28] MEDS: MAG-OX TAB PO SCH (06:11)
[2021-07-28] MEDS ORDERED: TOPROL XL PO ONE (07:09)
[2021-07-28] MEDS: TOPROL XL PO SCH (08:19)
[2021-07-28] MEDS: NORVASC TAB 10 MG PO SCH (08:19)
[2021-07-28] MEDS: SYNTHROID 150 mcg TAB PO SCH (08:19)
[2021-07-28] MEDS: XANAX PO SCH ×2 (08:19→20:37)
[2021-07-28] MEDS: ROBITUSSIN DM PO SCH ×4 (08:20→20:37)
[2021-07-28] MEDS: COLACE CAP 100 MG PO SCH (20:37)
[2021-07-29] MEDS: MAG-OX TAB PO SCH (05:59)
[2021-07-29] MEDS ORDERED: TOPROL XL PO ONE (07:28)
[2021-07-29] MEDS: TOPROL XL PO SCH (08:54)
[2021-07-29] MEDS: NORVASC TAB 10 MG PO SCH (08:54)
[2021-07-29] MEDS: SYNTHROID 150 mcg TAB PO SCH (08:55)
[2021-07-29] MEDS: XANAX PO SCH (08:55)
[2021-07-29] MEDS: ROBITUSSIN DM PO SCH ×2 (08:55→12:12)
[2021-07-29 09:57] VITALS: BP 129/63
--- NOTE | 2021-09-21 11:55 | PCM.DCPLAN ---
Discharge Plan - Discharge Plan Hospital Course: Admit date 07/15/21 Discharge date 07/29/21 DOS 07/29/21 Admit Diagnosis Generalized weakness, Frequent falls, Pneumonia Discharge Diagnosis Same Hospital Course Patient is an 86 year old female who was admitted for swing bed rehab from [facility]. Patient was in [facility] due to weakness, pneumonia, frequent falls. Patient was admitted with PO abx for pneumonia. Patient denied any concerns during stay. Patient worked with PT without difficulty. Patient has no new issues while in swing bed. Patient was discharged home to follow up with pcp in 1 week. Greater than 35 mins spent on discharge. Disposition: HOME HEALTH SERVICE Condition: Stable Health Concerns: Post Hospitalization: new medications and changes needed to prevent readmission or further decline. Pt educated and given instructions on all concerns. Care Plan Goals: Problem: Activity Intolerance Goal: Increased tolerance to activity Instructions: Follow provided instructions. Follow up with primary physician as directed. Contact primary care physician or report to the closest Emergency Room if condition worsens. Plan of Treatment: Continue with present treatment and follow up plan. Pt is to keep follow up appointment as instructed and take medications as ordered. Prescriptions: Continued alprazolam [Xanax] 0.5 mg Tablet 0.5 mg PO BID amlodipine 10 mg Tablet 10 mg PO DAILY cefdinir 300 mg Capsule 300 mg PO BID docusate sodium 100 mg Capsule 100 mg PO DAILY levothyroxine 150 mcg Tablet 150 mcg PO DAILY magnesium hydroxide 400 mg/5 mL Suspension 60 ml PO QHS metoprolol succinate 100 mg Tablet Extended Release 24 Hr 100 mg PO DAILY - Follow ups/Referrals Follow ups/Referrals: [facility] [Other] (DME - Walker) Dr. Nash Richards DO [Other] - 08/03/21 1:30 pm [facility] [STAFF PHYSICIAN] - - Instructions Instructions: Fall Prevention in the Home, Adult, [id number], Type 2 Diabetes Mellitus, Self-Care, Adult, [id number], How to Use a Walker, Hypertension, Adult, Mkid-xi-[id number], Hospital-Acquired Pneumonia Forms: Precautions for [place] [id number], [facility], Patient Portal, Social Distancing Print Language: SENEGALESE
== END 2021-07-29 14:30 | disposition home health service (06) | DRG 194 ==
LOC: MED/SURG 14:30
PROVIDERS: ADMIT Internal Medicine; ATTEND Internal Medicine